=== PATIENT | male | born 1995 | race Caucasian/White ===

== ENCOUNTER 2025-08-03 13:32 | Outpatient (CLI) | payer OTHER, SELFPAY ==
--- NOTE | 2025-08-03 15:17 | P.PCNPFT_ITS ---
PFT Procedure Performed PFT Procedure Performed Plethysmography (Lung Vol) Diffusing Cap (DLCO) Flow Vol Loop Spirometry w/o Bronchodil PFT Interpretation This is a pulmonary function test with spirometry, plethysmography and diffusing capacity. The test was performed and results interpreted in accordance with the 2019 and 2005 ATS/ERS Task Force guidelines respectively using the Global Lung Function Initiative-2012 reference equations. Patient demonstrated good effort and cooperation. Reproducibility criteria were met. The quality of the spirometry maneuver was Grade A. Findings: Spirometry: The contour the inspiratory and expiratory flow tracing are normal. The FVC is 4.30 L, 79% predicted. The FEV1 is 3.12 L, 70% predicted. The FEV1: FVC ratio is 73%. Plethysmography: The total lung capacity is 5.86 L, 85% predicted. The functional residual capacity is 2.22 L, 65% predicted. The residual volume is 1.27 L, 76% predicted. Diffusing capacity: The diffusing capacity unadjusted for hemoglobin and carboxyhemoglobin is 30.9, 89% predicted. The diffusing capacity adjusted for a lveolar volume is 5.53, 108% predicted. Impression: The FEV1 is less than 80% predicted and the FEV1: FVC ratio is greater than 70% consistent with Preserved Ratio Impaired Spirometry (PRISm) with a low FVC. The lung volumes are normal. The diffusing capacity is normal. There are no prior studies for comparison
== END 2025-08-03 13:33 | disposition home or self-care (01) ==
LOC: ANHPFT 13:36
PROVIDERS: PCP Nurse Practitioner Family; Visit Provider Nurse Practitioner Family
DX: Z01.818 Encounter for other preprocedural examination (principal)
CPT/HCPCS: 94375; 94726; 94729